=== PATIENT | female | born 1965 | race Caucasian/White ===

== ENCOUNTER 2019-06-05 11:05 | Emergency (ER) | payer MEDICAID ==
[~2019-06-05] VITALS: Ht 165.1 cm; Wt 83.0 kg
[~2019-06-05 11:05] MED LIST: ATOR10TA87 PO; DULO60CA45 PO; FENO134C PO; IBUP-1986 PO; LEVO125T PO
[2019-06-05] MEDS ORDERED: HYDROcodone/acetaminophen 10/325mg tab PO ONE (12:05)
[2019-06-05] MEDS ORDERED: ketorolac trometh inj. 60 MG/2 ML VIAL IM ONE (12:05)
[2019-06-05] MEDS ORDERED: orphenadrine citrate 60mg/2ml inj. IM ONE (12:05)
[2019-06-05] MEDS ORDERED: NAPR-56 PO (13:17)
[2019-06-05] MEDS ORDERED: CYCL-1 PO (13:17)
[2019-06-05] MEDS ORDERED: GABA300C PO (13:17)
[2019-06-05 13:48] VITALS: BP 115/72
== END 2019-06-05 13:50 | disposition home or self-care (01) ==
LOC: ER 11:06
DX: S39.012A Strain of muscle, fascia and tendon of lower back, initial encounter (principal); M54.42 Lumbago with sciatica, left side; G89.29 Other chronic pain; F41.9 Anxiety disorder, unspecified; F32.9 Major depressive disorder, single episode, unspecified; F17.200 Nicotine dependence, unspecified, uncomplicated; Z88.5 Allergy status to narcotic agent; Z88.8 Allergy status to other drugs, medicaments and biological substances; Z79.899 Other long term (current) drug therapy; W18.39XA Other fall on same level, initial encounter; Y93.89 Activity, other specified; Y92.89 Other specified places as the place of occurrence of the external cause; Y99.8 Other external cause status
CPT/HCPCS: 72100; 96372; 99283; J1885; J2360

== ENCOUNTER 2021-02-07 18:13 | Emergency (ER) | payer MEDICAID ==
[~2021-02-07] VITALS: Ht 160 cm; Wt 80.9 kg
[~2021-02-07 18:13] MED LIST changes: +CYCL-1 PO; +GABA300C PO
[2021-02-07] MEDS ORDERED: diazepam 5mg tablet PO ONE (20:50)
[2021-02-07] MEDS ORDERED: ketorolac trometh inj. 60 MG/2 ML VIAL IM ONE (20:50)
[2021-02-07] MEDS ORDERED: HYDROcodone/acetaminophen 10/325mg tab PO ONE (20:50)
[2021-02-07] MEDS ORDERED: METH-798 PO (21:13)
[2021-02-07] MEDS ORDERED: NAPR-56 PO (21:13)
[2021-02-07 21:29] VITALS: BP 134/90
== END 2021-02-07 21:44 | disposition home or self-care (01) ==
LOC: ER 18:14
DX: G89.29 Other chronic pain (principal); M54.5 Low back pain; Z88.6 Allergy status to analgesic agent; Z88.8 Allergy status to other drugs, medicaments and biological substances; Z79.899 Other long term (current) drug therapy
CPT/HCPCS: 96372; 99283; J1885

== ENCOUNTER 2023-03-16 10:23 | Emergency (ER) | payer MEDICAID ==
[~2023-03-16] VITALS: Ht 160 cm; Wt 90.9 kg
[~2023-03-16 10:23] MED LIST changes: -DULO60CA45 PO; +DULO60CA59 PO; -FENO134C PO; +FENO134C21 PO; +METH-798 PO
[2023-03-16 10:49] LABS: BASOPHILS # (AUTO) 0.1 X10'3 (0-0.2); BASOPHILS % (AUTO) 0.5 % (0-1); EOSINOPHILS # (AUTO) 0.3 X10'3 (0-0.9); HEMATOCRIT 42.1 % (35.0-45.0); HEMOGLOBIN 14.3 g/dl (12.0-16.0); LYMPHOCYTES % (AUTO) 40.3 % (21-51); MEAN CORPUSCULAR HEMOGLOBIN 32.2 PG (27.0-31.0); MEAN CORPUSCULAR HGB CONC 33.9 g/dL (33.0-36.5); MEAN CORPUSCULAR VOLUME 95.1 FL (78-98); MEAN PLATELET VOLUME 8.1 FL (7.4-10.4); MONOCYTES # (AUTO) 0.8 X10'3 (0-0.9); MONOCYTES % (AUTO) 7.7 % (2-12); NEUTROPHILS # (AUTO) 4.8 X10'3 (1.8-7.7); NEUTROPHILS % (AUTO) 48.5 % (42-75); PLATELET COUNT 360 X10'3 (140-440); RED BLOOD COUNT 4.43 X10'6 (4.20-5.60); RED CELL DISTRIBUTION WIDTH 14.4 % (11.5-14.5)
[2023-03-16 11:11] LABS: ALANINE AMINOTRANSFERASE 47 U/L (12-78); ALBUMIN 3.9 G/DL (3.4-5.0); ALBUMIN/GLOBULIN RATIO 1.1 (1.1-1.5); ALKALINE PHOSPHATASE 62 IU/L (46-116); ANION GAP 7 (8-16); ASPARTATE AMINO TRANSFERASE 34 U/L (10-37); BILIRUBIN,TOTAL 0.2 MG/DL (0.1-1.0); BLOOD UREA NITROGEN 21 MG/DL (7-18); BUN/CREATININE RATIO 23.1 (10.0-20.0); CALCIUM 9.6 MG/DL (8.5-10.1); CHLORIDE 104 MMOL/L (99-107); CREATININE 0.91 MG/DL (0.40-0.90); GLUCOSE 105 MG/DL (70-104); SODIUM 138 MMOL/L (135-145); TOTAL CARBON DIOXIDE 26.6 MMOL/L (24-32); TOTAL PROTEIN 7.4 G/DL (6.4-8.2); eGFR 64 ML/MIN
[2023-03-16] MEDS ORDERED: ketorolac trometh. 30mg/ml inj. IV ONE (11:20)
[2023-03-16] MEDS ORDERED: ondansetron/PF 4mg/2ml inj IV ONE (11:20)
[2023-03-16] MEDS ORDERED: normal saline 1000ml 1,000 ML IV ONE (11:20)
[2023-03-16] MEDS ORDERED: mag hydrox/Alum hydrox/simeth 30ml oral suspension PO ONE (11:20)
[2023-03-16] MEDS ORDERED: famotidine/PF 10 mg/ml inj IV ONE (11:20)
[2023-03-16] MEDS ORDERED: LIDOcaine Viscous 15ml cup MM ONE (11:20)
[2023-03-16] MEDS ORDERED: diphenhydrAMINE 50 mg/ml inj IV ONE (11:20)
[2023-03-16] MEDS ORDERED: FAMO20TA47 PO (12:46)
[2023-03-16] MEDS ORDERED: SIME80TA16 PO (12:46)
[2023-03-16] MEDS ORDERED: SUMA100T16 PO (12:46)
[2023-03-16 13:09] VITALS: BP 116/69
== END 2023-03-16 13:27 | disposition home or self-care (01) ==
LOC: ER 10:23
DX: K21.9 Gastro-esophageal reflux disease without esophagitis (principal); G43.909 Migraine, unspecified, not intractable, without status migrainosus; R06.02 Shortness of breath; I10 Essential (primary) hypertension; G89.29 Other chronic pain; F41.9 Anxiety disorder, unspecified; F32.9 Major depressive disorder, single episode, unspecified; Z88.5 Allergy status to narcotic agent; Z88.8 Allergy status to other drugs, medicaments and biological substances; Z79.899 Other long term (current) drug therapy
CPT/HCPCS: 36415; 71045; 80053; 83880; 84484; 85025; 93005; 96361; 96374; 96375; 99285; J1200; J1885; J2405; J3490; J7030

== ENCOUNTER 2023-09-01 08:29 | Outpatient (CLI) | payer MEDICAID ==
[~2023-09-01] VITALS: Ht 160 cm; Wt 90.7 kg
[~2023-09-01 08:29] MED LIST changes: +FAMO20TA47 PO; +SIME80TA16 PO; +SUMA100T16 PO
[2023-09-01 09:05] VITALS: PULSE 68; RESP 15; O2SAT 99
[2023-09-01] MEDS ORDERED: albuterol 2.5 MG/3 ML nebule NEB ONE (09:05)
== END 2023-09-01 23:59 | disposition home or self-care (01) ==
LOC: RT 08:29
PROVIDERS: ATTEND Nurse Practitioner Family
DX: R94.2 Abnormal results of pulmonary function studies (principal); R06.2 Wheezing
CPT/HCPCS: 94060; 94760

== ENCOUNTER 2023-12-09 22:34 | Emergency (ER) | payer MEDICAID ==
[~2023-12-09] VITALS: Ht 160 cm; Wt 88.6 kg
[2023-12-09 22:39] VITALS: TEMP 98.5
[2023-12-10] MEDS: normal saline 1000ML IV soln IVB ONE (00:40)
[2023-12-10] MEDS: cyclobenzaprine 10mg tablet PO ONE (00:40)
[2023-12-10] MEDS: ketorolac tromethamine 15mg/ml inj. IV ONE (00:40)
[2023-12-10 00:41] LABS: BASOPHILS # (AUTO) 0.1 X10'3 (0-0.2); EOSINOPHILS # (AUTO) 0.5 X10'3 (0-0.9); EOSINOPHILS % (AUTO) 3.3 % (0-6); HEMOGLOBIN 13.9 g/dl (12.0-16.0)
[2023-12-10 00:43] LABS: BASOPHILS % (AUTO) 0.7 % (0-1); HEMATOCRIT 41.3 % (35.0-45.0); LYMPHOCYTES # (AUTO) 5.5 X10'3 (1.1-4.8); LYMPHOCYTES % (AUTO) 36.4 % (21-51); MEAN CORPUSCULAR HEMOGLOBIN 31.8 PG (27.0-31.0); MEAN CORPUSCULAR HGB CONC 33.7 g/dL (33.0-36.5); MEAN CORPUSCULAR VOLUME 94.3 FL (78-98); MEAN PLATELET VOLUME 9.2 FL (7.4-10.4); MONOCYTES # (AUTO) 1.3 X10'3 (0-0.9); MONOCYTES % (AUTO) 8.4 % (2-12); NEUTROPHILS # (AUTO) 7.7 X10'3 (1.8-7.7); NEUTROPHILS % (AUTO) 51.2 % (42-75); PLATELET COUNT 339 X10'3 (140-440); RED BLOOD COUNT 4.38 X10'6 (4.20-5.60); RED CELL DISTRIBUTION WIDTH 14.4 % (11.5-14.5); WHITE BLOOD COUNT 15.1 X10'3 (4.5-11.0)
[2023-12-10 00:52] LABS: ALANINE AMINOTRANSFERASE 34 U/L (12-78); ALBUMIN 3.7 G/DL (3.4-5.0); ALBUMIN/GLOBULIN RATIO 0.9 (1.1-1.5); ALKALINE PHOSPHATASE 64 IU/L (46-116); ANION GAP 10 (8-16); ASPARTATE AMINO TRANSFERASE 23 U/L (10-37); BILIRUBIN,TOTAL 0.3 MG/DL (0.1-1.0); BLOOD UREA NITROGEN 23 MG/DL (7-18); BUN/CREATININE RATIO 21.5 (10.0-20.0); CALCIUM 9.6 MG/DL (8.5-10.1); CHLORIDE 105 MMOL/L (99-107); CREATININE 1.07 MG/DL (0.40-0.90); GLUCOSE 99 MG/DL (70-104); LIPASE 60 U/L (16-77); POTASSIUM 4.2 MMOL/L (3.5-5.1); SODIUM 141 MMOL/L (135-145); TOTAL CARBON DIOXIDE 25.8 MMOL/L (24-32); TOTAL PROTEIN 7.6 G/DL (6.4-8.2); eCRCL 49 ML/MIN; eGFR 53 ML/MIN
[2023-12-10 02:00] LABS: BILIRUBIN,URINE NEGATIVE (Neg); CLARITY,URINE CLEAR (Clear); COLOR,URINE STRAW (Yellow); GLUCOSE, URINE NEGATIVE (Neg); KETONES,URINE NEGATIVE (Neg); LEUKOCYTE ESTERASE ,URINE NEGATIVE (Neg); NITRITES, URINE NEGATIVE (Neg); OCCULT BLOOD,URINE MODERATE (Neg); PROTEIN,URINE NEGATIVE (Neg); UROBILINOGEN,URINE 0.2 E.U/dL (0.2-1.0)
[2023-12-10 02:10] LABS: SQUAMOUS EPITHELIAL CELL,UR MODERATE /LPF (FEW); UA COLLECTION TYPE CLN CATCH MIDSTREAM
[2023-12-10 02:12] LABS: BACTERIA,URINE 1+ /HPF (Neg); WBC,URINE 0-4 /HPF (0-4)
[2023-12-10] MEDS ORDERED: iohexol 300mg/ml 100ml inj. ONE (02:37)
[2023-12-10] MEDS ORDERED: METR-159 PO (05:28)
[2023-12-10] MEDS ORDERED: CIPR-429 PO (05:28)
[2023-12-10] MEDS: ciprofloxacin 250mg tablet PO ONE (05:40)
[2023-12-10] MEDS: metroNIDAZOLE 500mg tablet PO ONE (05:40)
[2023-12-10 05:48] VITALS: BP 126/87; PULSE 72; RESP 20; O2SAT 97
== END 2023-12-10 05:50 | disposition home or self-care (01) ==
LOC: ER 22:34
DX: K57.92 Diverticulitis of intestine, part unspecified, without perforation or abscess without bleeding (principal); E78.00 Pure hypercholesterolemia, unspecified; I10 Essential (primary) hypertension; G89.29 Other chronic pain; M54.9 Dorsalgia, unspecified; F31.9 Bipolar disorder, unspecified; Z88.5 Allergy status to narcotic agent; Z88.8 Allergy status to other drugs, medicaments and biological substances; Z79.899 Other long term (current) drug therapy
CPT/HCPCS: 36415; 74177; 80053; 81001; 83690; 85025; 96361; 96374; 99285; J1885; J3490; J7030; Q9967